=== PATIENT | female | born 1950 | race Caucasian/White ===

== ENCOUNTER 2017-06-13 09:30 | Inpatient (IN) ==
[2017-06-13 14:22] LABS: Basophils # 0.1 K/mcL (0.0-0.2); Basophils % 0.4 %; Eosinophils # 0.2 K/mcL (0.0-0.6); Eosinophils % 1.4 %; Hematocrit 38.6 % (35.3-44.9); Hemoglobin 12.6 g/dL (11.5-15.4); Immature Granulocytes % 0.3 % (0-4); Lymphocytes # 2.5 K/mcL (0.6-4.6); Lymphocytes % 18.5 %; Mean Corpuscular HGB Conc 32.6 g/dL (31.6-35.5); Mean Corpuscular Hemoglobin 28.1 pg (28.0-33.3); Mean Corpuscular Volume 86.2 fL (83.0-100.0); Mean Platelet Volume 10.1 fL (9.4-12.4); Monocytes # 0.8 K/mcL (0.0-1.3); Neutrophils # 9.8 K/mcL (1.6-8.9); Platelet Count 411 K/mcL (140-400); Red Blood Count 4.48 M/mcL (3.82-4.97); Red Cell Distribution Width 14.2 % (11.5-14.5); Segmented Neutrophils % 73.4 %
[2017-06-13 14:28] LABS: INR 1.1; Prothrombin Time 11.7 Seconds (9.4-12.1)
[2017-06-13 14:34] LABS: BUN/Creatinine Ratio 13 (6-26); Blood Urea Nitrogen 12 mg/dL (7-20); Calcium 9.3 mg/dL (8.6-10.8); Carbon Dioxide 22 mEq/L (19-29); Chloride 108 mEq/L (98-109); Glucose 120 mg/dL (70-99); Osmolality,Calculated 293 (280-300); Sodium 141 mEq/L (136-145); eGFR For African Americans > 60 (> 60); eGFR For Non-African Americans > 60 (> 60)
[2017-06-13 14:45] LABS: Hemoglobin A1C 7.2 %
[2017-06-13] MEDS: *HR* Metformin 500 MG TABLET PO SCH (17:09)
[2017-06-13] MEDS: *HR* GlipiZIDE 5 MG TABLET PO SCH (17:09)
--- NOTE | 2017-06-13 18:07 | Event Note ---
Date of Encounter: 06/13/17 Time of Encounter: 18:06 Patient is a 66-year-old white female who was admitted from the [facility] this morning for abnormal carotid duplex scan and right thigh amaurosis. A CT Dian Damaso of the neck was performed this afternoon which demonstrates a critical stenosis of the right internal carotid artery. There is also a significant stenosis of the left carotid artery and of the vertebral vessels. There is also subclavian artery disease. The patient presents with diffuse cerebrovascular disease. Therefore recommend that we proceed with the right carotid endarterectomy for tomorrow. The patient may need further vascular reconstructions as well but the right side is critical and needs to be performed urgently.
--- NOTE | 2017-06-13 21:56 | Anesthesia Evaluation PreOp ---
Date of Encounter: 06/13/17 Time of Encounter: 21:54 - Past History Planned Operation: Right CEA Alcohol Use: none Drug use: none Medications and Allergies Aspirin Enteric Coated [Aspirin EC] 81 mg PO DAILY 06/13/17 [History] Atorvastatin Calcium [Lipitor] 80 mg PO HS 06/13/17 [History] Lisinopril [Zestril] 20 mg PO DAILY 06/13/17 [History] Metformin HCl [Metformin HCl ER] 1,000 mg PO BIDWM 06/13/17 [History] glipiZIDE [Glipizide] 20 mg PO BIDWM 06/13/17 [History] 3 Allergy/AdvReac Type Severity Reaction Status Date / Time Latex, Natural Rubber AdvReac Intermediate Blister Verified 06/13/17 12:48 Anesthesia Results - Labs 06/13/17 13:48 06/13/17 13:48
[2017-06-14] MEDS ORDERED: ceFAZolin 2,000 MG in Water for inj. (sterile) 20 ML IVP PRN (07:00)
[2017-06-14] MEDS ORDERED: Lisinopril 20 MG TABLET PO SCH (09:00)
[2017-06-14] MEDS ORDERED: Aspirin Enteric Coated 81 MG Tablet PO SCH (09:00)
[2017-06-14] MEDS: *HR* GlipiZIDE 5 MG TABLET PO SCH ×2 (09:54→16:32)
[2017-06-14] MEDS: *HR* Metformin 500 MG TABLET PO SCH ×2 (09:54→16:32)
[2017-06-14] MEDS ORDERED: *HR* Dextrose 50 % in Water (Syg) 50 ML SYRINGE IVP PRN (16:25)
[2017-06-14] MEDS ORDERED: Dextrose Gel 15 GM PO PRN ×2 (16:25)
[2017-06-14] MEDS ORDERED: D5% in Water 1,000 ML IVC PRN (16:25)
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
--- NOTE | 2017-06-14 18:56 | Anesthesia Procedures ---
Date of Encounter: 06/14/17 Time of Encounter: 18:45 Procedures: Anesthesia - Arterial Line Consent obtained: written consent Time out performed: Yes Local Anesthetic: Lidocaine 1% Amount of Anesthetic used (mls): 2 Size (Gauge): 20 Length (inches): 1 3/4 Technique Used: sterile prep, guide wire technique, direct puncture technique, other (ultrasound) Post-Procedure: line taped into place, dry sterile dressing placed Patient tolerated procedure: well, no complications Complications: none Site: Radial L
[2017-06-14] MEDS ORDERED: Albuterol 2.5 MG/3 ML NEBULIZER ONE (19:26)
[2017-06-14] MEDS ORDERED: Heparin 1,000 UNITS/500 mL NS 500 ML ONE (20:10)
[2017-06-14] MEDS ORDERED: Lidocaine 1% 20 ML MDV ONE (20:10)
[2017-06-14] MEDS ORDERED: Albuterol 2.5 MG/3 ML NEBULIZER IH ONE (20:37)
[2017-06-14] MEDS ORDERED: Ondansetron 4 MG/2 ML VIAL IVP ONE (20:37)
[2017-06-14] MEDS ORDERED: *HR* Promethazine 25 MG/ML VIAL IVP PRN (20:37)
[2017-06-14] MEDS ORDERED: *HR* HYDROmorphone (PF) 1 MG/ML SYRINGE IVP PRN (20:37)
[2017-06-14] MEDS ORDERED: *HR* Labetalol 20 MG/4 ML SYRINGE IVP PRN (20:37)
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
[2017-06-14] MEDS ORDERED: Ringers Solution, Lactated 1,000 ML ONE (23:57)
[2017-06-15] MEDS ORDERED: Albuterol 2.5 MG/3 ML NEBULIZER IH STA (00:32)
[2017-06-15] MEDS ORDERED: 0.9 % Sodium Chloride 500 ML ONE (00:58)
--- NOTE | 2017-06-15 01:19 | Anesthesia Evaluation Post Op ---
Date of Encounter: 06/15/17 Time of Encounter: 01:17 - Vital Signs Vital Signs: Vital Signs/O2 Sat, Most Current Temp Pulse Resp BP Pulse Ox 98.0 F 56 18 85/42 97 06/15/17 00:45 06/15/17 01:05 06/15/17 01:05 06/15/17 01:05 06/15/17 01:05 - Lungs Lungs: Clear Ascult./Percussion - Airway Airway: Non-obstructed - Cardiovascular Regular Rate - Mental Status Mental Status: Alert & Oriented, Answers Appropriately - Pain Pain Scale: 0 Pain Scale used: Numeric (1 - 10) - Nausea Vomiting Nausea Vomiting: Not Present - Hydration Hydration: Ice chips, Baca catheter - Discharge PostOp Status: Transfer Patient to floor (Pt being sent to ICU-12 for BP support. Currently on Phenylephrine drip.)
[2017-06-15] MEDS ORDERED: *HR* Labetalol 20 MG/4 ML SYRINGE IVP PRN ×2 (01:48→14:15)
[2017-06-15] MEDS ORDERED: ceFAZolin 2,000 MG in Water for inj. (sterile) 20 ML IVP PRN (01:48)
[2017-06-15] MEDS ORDERED: Dextrose Gel 15 GM PO PRN ×4 (01:48→14:15)
[2017-06-15] MEDS ORDERED: Naloxone 0.4 MG/ML INJ IVP PRN ×3 (01:48→14:15)
[2017-06-15] MEDS ORDERED: *HR* Dextrose 50 % in Water (Syg) 50 ML SYRINGE IVP PRN ×2 (01:48→14:15)
[2017-06-15] MEDS ORDERED: *HR* Promethazine 25 MG/ML VIAL IVP PRN ×2 (01:48→14:15)
[2017-06-15] MEDS ORDERED: *HR* HYDROmorphone (PF) 1 MG/ML SYRINGE IVP PRN ×3 (01:48→14:15)
[2017-06-15] MEDS ORDERED: D5% in Water 1,000 ML IVC PRN ×2 (01:48→14:15)
[2017-06-15] MEDS ORDERED: Acetaminophen 325 MG TABLET PO PRN ×2 (02:03→14:15)
[2017-06-15] MEDS: CeFAZolin Premix DUPLEX 2,000 MG/50 ML BAG IVPB SCH ×2 (02:06→08:19)
[2017-06-15] MEDS: Phenylephrine 10 MG in D5% in Water 250 ML IVC SCH ×2 (02:15→02:27)
[2017-06-15] MEDS: 0.9 % Sodium Chloride 1,000 ML IVC SCH ×2 (02:30→13:34)
[2017-06-15 05:05] LABS: Calcium 8.4 mg/dL (8.6-10.8); Potassium 4.4 mEq/L (3.5-4.5)
[2017-06-15 05:10] LABS: Basophils % 0.1 %; Hematocrit 32.4 % (35.3-44.9); Immature Granulocytes % 0.7 % (0-4); Lymphocytes % 5.1 %; Mean Corpuscular HGB Conc 32.4 g/dL (31.6-35.5); Mean Corpuscular Hemoglobin 28.4 pg (28.0-33.3); Mean Corpuscular Volume 87.6 fL (83.0-100.0); Mean Platelet Volume 10.2 fL (9.4-12.4); Monocytes # 0.4 K/mcL (0.0-1.3); Monocytes % 1.9 %; Neutrophils # 18.1 K/mcL (1.6-8.9); Platelet Count 382 K/mcL (140-400); Red Cell Distribution Width 14.3 % (11.5-14.5); Segmented Neutrophils % 92.2 %
[2017-06-15 05:38] LABS: Hemoglobin 10.5 g/dL (11.5-15.4)
[2017-06-15] MEDS ORDERED: *HR* Metformin 500 MG TABLET PO SCH (08:00)
[2017-06-15] MEDS ORDERED: *HR* GlipiZIDE 5 MG TABLET PO SCH (08:00)
[2017-06-15] MEDS ORDERED: Aspirin Enteric Coated 81 MG Tablet PO SCH (09:00)
[2017-06-15] MEDS ORDERED: Lisinopril 20 MG TABLET PO SCH (09:00)
[2017-06-15] MEDS ORDERED: Phenylephrine 10 MG in D5% in Water 250 ML IVC SCH (14:15)
[2017-06-15] MEDS ORDERED: ceFAZolin 2,000 MG in Water for inj. (sterile) 20 ML IVP SCH (16:00)
[2017-06-15] MEDS: *HR* Metformin 500 MG TABLET PO SCH (16:29)
[2017-06-15] MEDS: *HR* GlipiZIDE 5 MG TABLET PO SCH (16:32)
[2017-06-16] MEDS ORDERED: Aspirin Enteric Coated 81 MG Tablet PO SCH (09:00)
[2017-06-16] MEDS ORDERED: Lisinopril 20 MG TABLET PO SCH (09:00)
[2017-06-16] MEDS: *HR* Metformin 500 MG TABLET PO SCH (09:12)
[2017-06-16] MEDS: *HR* GlipiZIDE 5 MG TABLET PO SCH (09:12)
[2017-06-16 12:22] VITALS: BP 103/82
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
== END 2017-06-16 14:01 | disposition home or self-care (01) | DRG 38 ==
LOC: 2NNU 11:46 → INTOOBSV 11:46 → ICNU 06-15 00:48
PROVIDERS: ADMIT Surgery Vascular Surgery; ATTEND Surgery Vascular Surgery

== ENCOUNTER 2017-10-25 06:09 | Inpatient (IN) ==
[~2017-10-25 06:09] MED LIST: ceFAZolin 1,000 MG, Sodium Chloride IRRigation 1,000 ML IR ONE
[2017-10-25] MEDS ORDERED: CeFAZolin Syr 2,000MG/20 ML 2,000 MG/20 ML SYRINGE IVPB ONE (06:38)
[2017-10-25] MEDS ORDERED: Albuterol 2.5 MG/3 ML NEBULIZER IH ONE (06:39)
[2017-10-25] MEDS ORDERED: Albuterol 2.5 MG/3 ML NEBULIZER ONE (06:40)
[2017-10-25] MEDS: Ringers Solution, Lactated 1,000 ML IVC SCH ×2 (06:47→12:11)
[2017-10-25] MEDS ORDERED: NiCARdipine 2.5 MG/10 ML Syringe IVPB ONE (07:00)
[2017-10-25] MEDS ORDERED: *HR* Labetalol 100 MG/20 ML MDV ONE (07:00)
--- NOTE | 2017-10-25 07:00 | Anesthesia Evaluation PreOp ---
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: CVA (s/p visual changes which have improved - no hemiparesis, paresthesias, etc), Other (carotid stenosis - bilateral (s/p R CEA )) Other Medical History: Diabetes Type II (oral medications only) Anesthesia History: Past Anesthesia (aorto-fem bypass, R CEA, tubal ligation, appenedectomy, multiple skin grafts, bilateral knee arthroscopy) Alcohol Use: none Drug use: none Medications and Allergies Aspirin Enteric Coated [Aspirin EC] 81 mg PO DAILY 06/13/17 [History] Atorvastatin Calcium [Lipitor] 80 mg PO HS 06/13/17 [History] Lisinopril [Zestril] 30 mg PO DAILY 06/13/17 [History] Metformin HCl [Metformin HCl ER] 1,000 mg PO BIDWM 06/13/17 [History] glipiZIDE [Glipizide] 20 mg PO BIDWM 06/13/17 [History] 3 Allergy/AdvReac Type Severity Reaction Status Date / Time wool Allergy Hives Verified 10/25/17 06:50 Latex, Natural Rubber AdvReac Intermediate Blister Verified 10/25/17 06:50 - Meds/Allergy Pre-op Review Medications Reviewed: Yes Allergies Reviewed: Yes Beta Blockers on Current Med List: No Anesthesia Results - Labs Laboratory Tests 10/18/17 10/18/17 10/18/17 08:20 08:20 08:20 WBC 12.2 H Hgb 12.0 Hct 39.4 Plt Count 351 PT 9.9 INR 0.9 APTT 35.7 Sodium 138 Potassium 4.6 Chloride 107 Carbon Dioxide 22 L BUN 16 Creatinine 0.91 Est GFR ( Amer) > 60 Est GFR (Non-Af Amer) > 60 BUN/Creatinine Ratio 18 Glucose 97 Calculated Osmolality 287 Calcium 9.2 - Imaging EKG: report reviewed, image reviewed (SINUS RHYTHM LEFT VENTRICULAR HYPERTROPHY AND ST-T CHANGE BASELINE ARTIFACT) Anesthesia Exam Last Vital Signs Temp 97.5 F L 10/25/17 06:51 Pulse 67 10/25/17 06:51 Resp 18 10/25/17 06:51 BP 126/61 10/25/17 06:51 Pulse Ox 97 10/25/17 06:51 Weight: 73 kg - HEENT Pupil (Motor): Pupils equal, EOMI Mallampati: III Teeth: Poor dentition (prominent front teeth) Oral Opening: Greater than 3 - COMPOUNDER HELPER LOC: Oriented - Cardiac Rhythm: Regular Murmur: None - Pulmonary Breath Sounds: bilateral Clear Respiratory Effort: Symmetrical Anesthesia Assess/Plan ASA Score: 3 Modified [place] Scale for Level of Consciousness: Cooperative, oriented, and tranquil Anesthetic Plan: General Monitoring Plan: Standard Monitors, A-Line Recovery Plan: PACU
[2017-10-25] MEDS ORDERED: *HR* Phenylephrine 10 MG/ML VIAL ONE (07:04)
[2017-10-25] MEDS ORDERED: *HR* FentaNYL (PF) 100 MCG/2 ML VIAL ONE (07:09)
[2017-10-25] MEDS ORDERED: *HR* Midazolam HCl 2 MG/2 ML VIAL ONE (07:09)
[2017-10-25] MEDS ORDERED: *HR* Remifentanil 2 MG VIAL IVP ONE (07:09)
[2017-10-25] MEDS ORDERED: *HR* Propofol 200 MG/20 ML VIAL IVP ONE (07:10)
[2017-10-25] MEDS ORDERED: Lidocaine -MPF 2% 2 ML VIAL ONE (07:16)
[2017-10-25] MEDS ORDERED: *HR* Succinylcholine 200 MG/10 ML VIAL IVP ONE (07:16)
[2017-10-25] MEDS ORDERED: Lidocaine -MPF 4% 5 ML AMPUL ONE (07:17)
[2017-10-25] MEDS ORDERED: Lidocaine 1% 20 ML MDV ONE (07:19)
[2017-10-25] MEDS ORDERED: Heparin 1,000 UNITS/500 mL 1,000 ML ONE (07:19)
[2017-10-25] MEDS ORDERED: Heparin 1,000 UNITS/500 mL 500 ML ONE (07:24)
--- NOTE | 2017-10-25 07:37 | History & Physical Report ---
Date of Encounter: 10/25/17 Time of Encounter: 07:25 24 Hour HP Update - Instructions Instructions: If the History and Physical is less than 30 days old and was completed prior to A.M. admission and or procedure and has NOT been updated on calendar day of procedure please complete this update prior to performing procedure. - Update Patient reports changes in Medical Condition: No Changes in examination, assessment, or condition: No Changes in Medication: No Preop tests/diagnostics Reviewed: Yes Surgery Remains Indicated: Yes Consent for Planned Operative Procedure(s) Verified: Yes - Pre-Operative Checklist Preoperative Checklist Indicated: Yes Prophylactic Antibiotic Ordered: Yes Home Medications Include Beta Jose: No Beta Jose Taken Today (Day of Surgery): No Beta Jose Taken Yesterday (Day Prior to Surgery): No Is VTE Prophylaxis Indicated?: Yes
[2017-10-25] MEDS ORDERED: *HR* PHENYLEPHRINE 1,000 MCG/10 ML SYRINGE IVP ONE (08:18)
[2017-10-25] MEDS ORDERED: EPHEDrine 50 MG/ML VIAL ONE (08:26)
[2017-10-25] MEDS ORDERED: *HR* Heparin 5,000 UNIT/ML VIAL ONE ×2 (08:52→10:19)
[2017-10-25] MEDS ORDERED: Dexamethasone 4 MG/ML VIAL ONE (09:33)
[2017-10-25] MEDS ORDERED: Ondansetron 4 MG/2 ML VIAL ONE (09:33)
[2017-10-25] MEDS ORDERED: *HR* OxyCODONE Immed Rel 5 MG TABLET PO PRN (09:37)
[2017-10-25] MEDS ORDERED: MORPHINE SUL Oral CONC 10 MG/0.5 ML ORAL.SYG SL PRN (09:37)
[2017-10-25] MEDS ORDERED: *HR* Metoprolol 5 MG/5 ML VIAL IVP PRN (09:37)
[2017-10-25] MEDS ORDERED: *HR* Promethazine 25 MG/ML VIAL IVP PRN (09:37)
--- NOTE | 2017-10-25 11:06 | Operative Note ---
Date of procedure: 10/25/17 Pre-op diagnosis: left carotid stenosis Post-op diagnosis: same Procedure: left carotid endarterectomy with 8 Fr shunt and bovine patch angioplasty Complications: none Anesthesia: GETA Surgeon: Ganesh May Was there an hospital nursing assistant present: No Estimated blood loss (cc): 100 Specimen: 0 Condition: stable Disposition: PACU Procedure in Detail: History Anna Robbins is a 67-year-old white female with known bilateral carotid artery disease. She is status post a right carotid endarterectomy. The patient has recovered from that surgery is doing well. She now returns for surgery on the left side. Procedure After informed consent was obtained patient was taken from the holding area to the operating room. General endotracheal anesthesia was established. The left neck was then sterilely prepped and draped. A timeout protocol was observed. An oblique incision was then made on the left neck anterior to the sternocleidomastoid muscle border. Dissection was carried down to the carotid sheath. Controls obtained of the carotid artery. 5000 units of heparin was then administered intravenously. After an appropriate delay the vessels were clamped with the internal carotid artery clamped first. Using 11 blade knife and Bell scissors the artery was opened. An 8 Pashto shunt was then inserted atraumatically. Patency of the shunt was confirmed by the use of intraoperative Doppler. Evaluation of the plaque revealed a heterogeneous dense plaque. The endarterectomy was begun at the distal aspect of the common carotid artery. Dissection was carried proximally and distally. The plaque was then removed and then the underlying surface was inspected for any residual debris. After this was accomplished a bovine pericardial patch angioplasty was performed using 2 6- 0 Prolene sutures. Leaving a small space open on the suture line the shunt was clamped divided and removed. The final few sutures were then placed. After appropriate backbleeding and flushing the artery was opened with pulsatile flow restored to the left internal carotid artery. There was no hemodynamic distress with this maneuver. The wound was then irrigated and hemostasis achieved. A superficial cervical block with half percent Marcaine was performed. The wound was then closed in layers using absorbable suture. There were no intraoperative complications. The patient awoke from anesthesia without difficulty. She was neurologically intact. She was taken to the recovery room in stable condition.
[2017-10-25] MEDS ORDERED: *HR* Labetalol 20 MG/4 ML SYRINGE IVP PRN (12:38)
[2017-10-25] MEDS ORDERED: *HR* HYDROcodone/Acet 5/325 mg TABLET PO PRN (12:38)
[2017-10-25] MEDS ORDERED: Ondansetron 4 MG/2 ML VIAL IVP PRN (12:38)
[2017-10-25] MEDS ORDERED: traMADol 50 MG TABLET PO PRN (12:38)
[2017-10-25] MEDS ORDERED: Naloxone 0.4 MG/ML INJ IVP PRN (12:38)
[2017-10-25] MEDS ORDERED: Acetaminophen 325 MG TABLET PO PRN (12:38)
--- NOTE | 2017-10-25 13:03 | Anesthesia Evaluation Post Op ---
Date of Encounter: 10/25/17 Time of Encounter: 12:30 - Vital Signs Vital Signs: See Anesthesia Record - Lungs Lungs: Clear Ascult./Percussion - Airway Airway: Non-obstructed - Cardiovascular Regular Rate - Mental Status Mental Status: Alert & Oriented, Answers Appropriately - Pain Pain Scale: 2 - Nausea Vomiting Nausea Vomiting: Not Present - Hydration Hydration: NPO - Discharge PostOp Status: Transfer Patient to floor (to ICU)
[2017-10-25] MEDS: *HR* Metoprolol 5 MG/5 ML VIAL IVP SCH ×3 (13:19→23:23)
[2017-10-25 14:29] LABS: Basophils % 0.2 %; Eosinophils % 0.1 %; Hematocrit 28.9 % (35.3-44.9); Immature Granulocytes % 0.3 % (0-4); Lymphocytes # 0.8 K/mcL (0.6-4.6); Lymphocytes % 5.7 %; Mean Corpuscular HGB Conc 31.5 g/dL (31.6-35.5); Mean Corpuscular Hemoglobin 26.1 pg (28.0-33.3); Mean Corpuscular Volume 82.8 fL (83.0-100.0); Mean Platelet Volume 10.5 fL (9.4-12.4); Monocytes # 0.2 K/mcL (0.0-1.3); Monocytes % 1.2 %; Neutrophils # 13.3 K/mcL (1.6-8.9); Platelet Count 228 K/mcL (140-400); Red Blood Count 3.49 M/mcL (3.82-4.97); Red Cell Distribution Width 15.7 % (11.5-14.5); Segmented Neutrophils % 92.5 %
[2017-10-25 14:33] LABS: BUN/Creatinine Ratio 14 (6-26); Blood Urea Nitrogen 12 mg/dL (8-23); Calcium 7.9 mg/dL (8.6-10.3); Carbon Dioxide 21 mEq/L (23-29); Chloride 110 mEq/L (98-107); Glucose 180 mg/dL (70-105); Osmolality,Calculated 294 (280-300); Potassium 4.3 mEq/L (3.5-5.1); Sodium 140 mEq/L (136-145); eGFR For African Americans > 60 (> 60); eGFR For Non-African Americans > 60 (> 60)
[2017-10-25 14:35] LABS: Hemoglobin 9.1 g/dL (11.5-15.4)
--- NOTE | 2017-10-25 14:45 | Pulmonology Consult Note ---
<Ori Rodriguez - Last Filed: 10/25/17 14:39> Date of Encounter: 10/25/17 Time of Encounter: 14:15 Assessment and Plan (1) Postoperative hypotension Current Visit: Yes Status: Acute 70s/30s per BP cuff in post op period; has history of similar concern with prior endarterectomy in June of 2017 (needed betty-synephrine then) -- Arterial line exhibits BPs in normal systolic range, i.e., 120s -- Given albumin -- Deferred CVC and pressors as BP seems to be spontaneously recovering -- CBC & BMP ordered and pending -- Will continue to monitor closely for the time being (2) Carotid stenosis, bilateral Current Visit: No Status: Acute Left Endarterectomy today; hypotensive in post-op period -- Defer all other care to surgical team (3) COPD (chronic obstructive pulmonary disease) Current Visit: No Status: Chronic Not acutely symptomatic -- Added scheduled duonebs Qualifiers: COPD type: unspecified COPD Qualified Code(s): J44.9 - Chronic obstructive pulmonary disease, unspecified History of Present Illness Consult date: 10/25/17 Requesting physician: Ganesh May Reason for consult: other (Hypotension in Post-Op period) Chief complaint: Hypotension History of present illness: Anna Robbins is a 67F with carotid stenosis in ICU s/p Left Carotid Endarterectomy 10/25/17. Patient transferred to ICU due to overflow of 2N. Patient noted to be hypotensive on BP cuff / monitor (70s/30s) and reported this to Dr. May who then requested consult for hemodynamic support, i.e., CVC with pressors if needed. Patient is comfortable in post op state with no acute complaints. Is not pre-syncopal or somnolent and HR is normal. Pt given single dose of albumin and monitor was adapted to include arterial line pressure monitoring which seems to be more consistently wnl. Pt did have right carotid endarterectomy in June of 2017 with a similar outcome regarding BPs; patient was at that visit sustained via betty-synephrine. Past Med Surg Social Fam HX - Past Medical History Medical history: CVA, diabetes, hyperlipidemia, hypertension, myocardial infarction, peripheral artery disease Psychiatric history: no psych history - Past Surgical History Surgical History: appendectomy - Social History Smoking Status: Current every day smoker Smokeless Tobacco Status: No Alcohol use: none Drug use: none - Family History Mother Hx Family Cancer: Yes (KIDNEY CANCER.) Medications and Allergies Aspirin Enteric Coated [Aspirin EC] 81 mg PO DAILY 06/13/17 [History] Atorvastatin Calcium [Lipitor] 80 mg PO HS 06/13/17 [History] Lisinopril [Zestril] 30 mg PO DAILY 06/13/17 [History] Metformin HCl [Metformin HCl ER] 1,000 mg PO BIDWM 06/13/17 [History] glipiZIDE [Glipizide] 20 mg PO BIDWM 06/13/17 [History] 3 Allergy/AdvReac Type Severity Reaction Status Date / Time wool Allergy Hives Verified 10/25/17 06:50 Latex, Natural Rubber AdvReac Intermediate Blister Verified 10/25/17 06:50 All Systems: Not having any lightheadedness, diaphoresis, vision change, headache, chest pain , palpitations, shortness of air, or nausea/vomiting. Physical Examination Vital Signs: Vital Signs, Last 4 Hours Temp Pulse Resp BP Pulse Ox 10/25/17 13:52 58 20 109/50 98 10/25/17 12:52 97.4 F L 65 20 72/35 98 10/25/17 12:51 64 10/25/17 12:20 97.8 F 63 15 86/43 100 10/25/17 12:10 97.8 F 63 13 90/45 98 10/25/17 12:00 64 15 98/49 98 10/25/17 11:50 67 16 89/44 97 10/25/17 11:40 97.3 F L 70 16 93/45 96 10/25/17 11:30 76 18 85/41 94 10/25/17 11:20 72 18 99/48 93 10/25/17 11:10 97.1 F L 81 20 119/57 98 General appearance: no acute distress, alert, appears uncomfortable Eyes: nonicteric ENT: oropharynx moist Effort: normal Auscultation: bilateral: clear Cardiovascular: regular rate and rhythm Gastrointestinal: soft, non-tender Integumentary: normal Extremities: no cyanosis, no edema, pulses normal normal mental status mood appropriate, affect normal Results - Laboratory Findings CBC and BMP: 10/25/17 13:40 10/25/17 13:54 Abnormal lab findings: Abnormal lab results WBC 14.3 K/mcL (4.3-11.1) H 10/25/17 13:40 RBC 3.49 M/mcL (3.82-4.97) L 10/25/17 13:40 Hgb 9.1 g/dL (11.5-15.4) L 10/25/17 13:40 Hct 28.9 % (35.3-44.9) L 10/25/17 13:40 MCV 82.8 fL (83.0-100.0) L 10/25/17 13:40 MCH 26.1 pg (28.0-33.3) L 10/25/17 13:40 MCHC 31.5 g/dL (31.6-35.5) L 10/25/17 13:40 RDW 15.7 % (11.5-14.5) H 10/25/17 13:40 Neutrophils # 13.3 K/mcL (1.6-8.9) H 10/25/17 13:40 Chloride 110 mEq/L (98-107) H 10/25/17 13:54 Carbon Dioxide 21 mEq/L (23-29) L 10/25/17 13:54 Glucose 180 mg/dL (70-105) H 10/25/17 13:54 POC Glucose 144 (58-89) H 10/25/17 12:43 Calcium 7.9 mg/dL (8.6-10.3) L 10/25/17 13:54 - Clinical Findings Intake & Output: Intake & Output 10/24/17 10/25/17 10/25/17 23:59 07:59 15:59 Intake Total 1250 / 1250 Output Total 150 / 150 Balance 1100 / 1100 Weight 73.028 kg Consult Discharge Plan - Plan Referrals: Morenita Doe MD [Primary Care Provider] - (Patient does not need PCP follow up due to a surgery patient) Ganesh May MD [Partnered Physician] - 11/16/17 9:45 am <Davon Mrain - Last Filed: 10/25/17 16:02> Date of Encounter: 10/25/17 All Systems: The remainder of the systems were reviewed and are negative Physical Examination Vital Signs: Vital Signs, Last 4 Hours Temp Pulse Resp BP Pulse Ox 10/25/17 15:00 56 20 119/49 96 10/25/17 13:52 58 20 109/50 98 10/25/17 12:52 97.4 F L 65 20 72/35 98 10/25/17 12:51 64 10/25/17 12:20 97.8 F 63 15 86/43 100 10/25/17 12:10 97.8 F 63 13 90/45 98 10/25/17 12:00 64 15 98/49 98 Results - Laboratory Findings CBC and BMP: 10/25/17 13:40 10/25/17 13:54 Abnormal lab findings: Abnormal lab results WBC 14.3 K/mcL (4.3-11.1) H 10/25/17 13:40 RBC 3.49 M/mcL (3.82-4.97) L 10/25/17 13:40 Hgb 9.1 g/dL (11.5-15.4) L 10/25/17 13:40 Hct 28.9 % (35.3-44.9) L 10/25/17 13:40 MCV 82.8 fL (83.0-100.0) L 10/25/17 13:40 MCH 26.1 pg (28.0-33.3) L 10/25/17 13:40 MCHC 31.5 g/dL (31.6-35.5) L 10/25/17 13:40 RDW 15.7 % (11.5-14.5) H 10/25/17 13:40 Neutrophils # 13.3 K/mcL (1.6-8.9) H 10/25/17 13:40 Chloride 110 mEq/L (98-107) H 10/25/17 13:54 Carbon Dioxide 21 mEq/L (23-29) L 10/25/17 13:54 Glucose 180 mg/dL (70-105) H 10/25/17 13:54 POC Glucose 198 (58-89) H 10/25/17 15:18 Calcium 7.9 mg/dL (8.6-10.3) L 10/25/17 13:54 - Clinical Findings Intake & Output: Intake & Output 10/24/17 10/25/17 10/25/17 23:59 07:59 15:59 Intake Total 1250 / 1250 Output Total 150 / 150 Balance 1100 / 1100 Weight 73.028 kg - Attending Attestation I examined this patient and my medical decision-making was reviewed with the Resident Physician. I agree with the documented findings, disposition and treatment plan as described except to the extent set forth below. We independently had [id number] contact with the patient Patient seen and examined at bedside Labs, radiology, chart personally reviewed. Impression: 1. Hypotension 2. POD #0 s/p Left CEA 3. COPD Plan: 1. This appears related to postoperative anesthesia effect which has resolved. She has responded to a small fluid challenge in the form of colloid (5% albumin) ;m ECG without acute changes lactate within normal limits without evidence of end organ tissue hypoperfusion no evidence of hemorrhage postoperatively 2. Vascular surgery managing 3. We will start scheduled bronchodilator treatments. Smoking cessation encouraged. Nicotine patch as needed. Follow up pulmonary for further evaluation of underlying obstructive lung disease Recommend routine chemical DVT prophylaxis
[2017-10-25] MEDS: CeFAZolin Premix DUPLEX 2,000 MG/50 ML BAG IVPB SCH ×2 (15:57→23:29)
[2017-10-25] MEDS: *HR* Metformin 500 MG TABLET PO SCH (17:32)
[2017-10-25] MEDS: Ipratropium/Albuterol Neb 3 ML IH SCH ×3 (17:56→23:33)
[2017-10-25] MEDS: *HR* GlipiZIDE 5 MG TABLET PO SCH (18:15)
[2017-10-26] MEDS: Norepinephrine 4 MG in D5% in Water 250 ML IVC SCH ×2 (03:37→13:14)
[2017-10-26] MEDS: Ipratropium/Albuterol Neb 3 ML IH SCH ×3 (03:45→11:48)
[2017-10-26 03:52] LABS: Basophils % 0.1 %; Eosinophils % 0.2 %; Hematocrit 28.7 % (35.3-44.9); Immature Granulocytes % 0.5 % (0-4); Lymphocytes # 1.9 K/mcL (0.6-4.6); Lymphocytes % 10.3 %; Mean Corpuscular HGB Conc 31.4 g/dL (31.6-35.5); Mean Corpuscular Hemoglobin 26.3 pg (28.0-33.3); Mean Corpuscular Volume 83.9 fL (83.0-100.0); Mean Platelet Volume 10.4 fL (9.4-12.4); Monocytes # 1.3 K/mcL (0.0-1.3); Monocytes % 6.8 %; Neutrophils # 15.3 K/mcL (1.6-8.9); Platelet Count 251 K/mcL (140-400); Red Blood Count 3.42 M/mcL (3.82-4.97); Red Cell Distribution Width 15.7 % (11.5-14.5); Segmented Neutrophils % 82.1 %
[2017-10-26 04:09] LABS: BUN/Creatinine Ratio 15 (6-26); Blood Urea Nitrogen 16 mg/dL (8-23); Calcium 8.3 mg/dL (8.6-10.3); Carbon Dioxide 22 mEq/L (23-29); Chloride 106 mEq/L (98-107); Glucose 108 mg/dL (70-105); Osmolality,Calculated 286 (280-300); Potassium 4.1 mEq/L (3.5-5.1); Sodium 137 mEq/L (136-145); eGFR For African Americans > 60 (> 60); eGFR For Non-African Americans 52 (> 60)
[2017-10-26] MEDS: *HR* Metoprolol 5 MG/5 ML VIAL IVP SCH ×2 (06:01→13:18)
[2017-10-26] MEDS ORDERED: Aspirin Enteric Coated 81 MG Tablet PO SCH (09:00)
[2017-10-26] MEDS: *HR* Metformin 500 MG TABLET PO SCH (09:00)
[2017-10-26] MEDS ORDERED: Lisinopril 20 MG TABLET PO SCH (09:00)
[2017-10-26] MEDS: CeFAZolin Premix DUPLEX 2,000 MG/50 ML BAG IVPB SCH (09:01)
[2017-10-26] MEDS: *HR* GlipiZIDE 5 MG TABLET PO SCH (09:02)
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
[2017-10-26 14:33] VITALS: BP 83/74
--- NOTE | 2017-10-26 19:59 | Electrocardiograph Report ---
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
== END 2017-10-26 14:45 | disposition home or self-care (01) | DRG 39 ==
LOC: SAMDAY 06:09 → ICNU 12:48
PROVIDERS: ADMIT Surgery Vascular Surgery; ATTEND Surgery Vascular Surgery